=== PATIENT | male | born 1960 | race Two or more races ===

== ENCOUNTER 2025-05-30 10:00 | Day surgery (SDC) | payer OTHER ==
[2025-05-29 09:49] VITALS: BP 121/78
[2025-05-29 10:17] LABS: BASO % 0.7 % (0.1-1.2); EOS # 0.06 (0.04-0.54); EOS % 1.0 % (0.7-7.0); LYMPH # 1.68 (1.18-3.74); LYMPH % 28.0 % (19.3-53.1); MEAN PLATELET VOLUME 11.50 fl (9.4-12.4); MONO # 0.29 (0.24-0.82); MONO % 4.8 % (4.7-12.5); NEUT # 3.92 (1.56-6.13); NEUT % 65.2 % (34.0-71.1); RED CELL DISTRIBUTION WIDTH 12.3 % (11.6-14.4)
[2025-05-29 10:21] LABS: URINE APPEARANCE Clear; URINE BILIRRUBIN Negative (NEGATIVE); URINE BLOOD Negative; URINE COLOR Yellow; URINE GLUCOSE Negative (NEGATIVE); URINE KETONE Negative (NEGATIVE); URINE LEUKOCYTE Negative; URINE NITRATE Negative; URINE PROTEIN Negative (NEGATIVE); URINE UROBILINOGEN 0.2 E.U./dl
[2025-05-29 10:32] LABS: URINE BACTERIA 2.3 uL (0.0-1933); URINE CAST 0.00 uL (0.0-1.40); URINE EPITHELIAL CELLS 0.1 uL (0.0-38.8); URINE RBC 0.5 uL (0.0-20.8); URINE WBC 0.1 uL (0.0-23.2)
[2025-05-29 11:01] LABS: INR 0.99
[2025-05-29 14:01] LABS: ALT/SGPT 34.0 U/L (12-78); AST/SGOT 18.0 U/L (15-37); BILIRUBIN TOTAL 0.55 mg/dL (0.3-1.2); BUN CREA RATIO 13.0 (7.0-25.0); CREATININE SERUM 0.89 mg/dL (0.70-1.30); GFR 86.33; GLOBULINA 3.2 G/DL (2.4-3.5); GLUCOSE FASTING 88.0 mg/dL (65-100); OSMOLALITY SERUM 282.0 MOSM/KG (275-295)
[~2025-05-30] VITALS: Ht 179.1 cm; Wt 76.0 kg
[2025-05-30] MEDS ORDERED: CEFAZOLIN SODIUM 1,000 MG VIAL ONE (11:26)
[2025-05-30] MEDS ORDERED: TYLENOL ARTHRI650 MG PO (11:32)
[2025-05-30] MEDS ORDERED: KETO10TA2 PO (11:32)
[2025-05-30] MEDS ORDERED: TRAMADOL HCL50 MG PO (11:32)
[2025-05-30] MEDS ORDERED: MIRALAX17 GM PO (11:32)
[2025-05-30] MEDS ORDERED: BUPIVACAINE HCL/MPF 0.5% 30ML VIAL ONE (11:37)
[2025-05-30] MEDS ORDERED: BUPIVACAINE HCL/Mpf 0.5% 10ML VIAL ONE (13:17)
[2025-05-30] MEDS ORDERED: KETOROLAC TROMETHAMINE 30 MG VIAL ONE (14:08)
[2025-05-30] MEDS ORDERED: SUGAMMADEX SODIUM 200 MG/2 ML VIAL IV ONE (14:08)
== END 2025-05-30 19:10 | disposition home or self-care (01) ==
LOC: CIR.AMB 10:00
PROVIDERS: ATTEND Surgery
DX: K40.90 Unilateral inguinal hernia, without obstruction or gangrene, not specified as recurrent (principal)
CPT/HCPCS: 49650; C1781